=== PATIENT | female | born 1955 | race Caucasian/White ===

== ENCOUNTER 2017-03-23 10:32 | Inpatient (IN) ==
[2017-03-23] MEDS ORDERED: SODIUM CHLORIDE 0.9% 500 ML IV STA (10:55)
[2017-03-23] MEDS ORDERED: METOCLOPRAMIDE 10 MG/2 ML VIAL IV STA (10:55)
[2017-03-23] MEDS ORDERED: PANTOPRAZOLE 40 MG VIAL IV STA (10:55)
[2017-03-23] MEDS ORDERED: ONDANSETRON 4 MG/2 ML VIAL IV STA (10:55)
[2017-03-23 11:06] LABS: Basophils # 0.1 10*3/uL (0.0-0.2); Basophils % 0.6 % (0.0-0.8); Eosinophils # 0.2 10*3/uL (0.0-0.87); Eosinophils % 1.1 % (0.00-10.9); Hematocrit 37.6 VOL% (35.7-47.0); Hemoglobin 12.7 GM/DL (12.0-16.0); Immature Granulocytes % 4.7 %; Immature Granulocytes Absolute 0.73 #; Lymphocytes # 0.8 10*3/uL (1.4-4.0); Lymphocytes % 5.4 % (21.3-54.2); Mean Corpuscular HGB Conc 33.8 GM/DL (32-36); Mean Corpuscular Hemoglobin 27 PG (27-34); Mean Corpuscular Volume 79.8 FL (87-102); Mean Platelet Volume 11.5 FL (9.6-12.0); Monocytes # 0.7 10*3/uL (0.11-0.8); Monocytes % 4.7 % (1.7-12.7); Neutrophils # 13.1 10*3/uL (1.4-7.4); Neutrophils % 83.5 % (38.7-73.9); Platelet Count 324 T/CUMM (130-400); Red Blood Count 4.71 MC/CUMM (3.8-5.5); Red Cell Distribution Width 14.4 % (9.3-17.3); White Blood Count 15.7 T/CUMM (4-12)
[2017-03-23] MEDS ORDERED: ONDANSETRON 4 MG/2 ML VIAL ONE (11:10)
[2017-03-23] MEDS ORDERED: METOCLOPRAMIDE 10 MG/2 ML VIAL ONE (11:10)
[2017-03-23] MEDS ORDERED: PANTOPRAZOLE 40 MG VIAL IV ONE (11:10)
[2017-03-23 11:41] LABS: Band Neutrophils 5 % (0-10); Eosinophils 1 % (0-10); Giant Platelets Few; Hypochromasia 1+; Lymphocytes 8 % (20-55); Ovalocytes Slight; Platelet Estimate Adequate; Segmented Neutrophils 81 % (50-85); Total Cells Counted 100
[2017-03-23 11:54] LABS: Apearance,Urine CLOUDY (Clear); Bacteria,Urine Moderate /HPF (Few); Bilirubin,Urine Negative (Negative); Blood, Urine Moderate mg/dL (Negative); Glucose,Urine (UA) Negative (Negative); Ketones,Urine Negative (Negative); Nitrite,Urine Negative (Negative); Protein,Urine 30 MG/DL; RBC,Urine 33 /HPF (0-4); Urine Color Yellow (Yellow); Urine Urobilinogen < 2.0 EU/DL (0.2-1.0); WBC,Urine 303 /HPF (0-6)
[2017-03-23] MEDS ORDERED: LEVOFLOXACIN INJ 750 MG in PREMIX 1 EACH IV STA (12:05)
[2017-03-23 12:12] LABS: Albumin 1.9 G/DL (3.4-5.0); Bilirubin,Total 0.6 MG/DL (0.2-1.0); Calcium 7.9 MG/DL (8.5-10.1); Osmolality,Calculated 289.8 MOS/KG (273-304); Potassium 3.3 MMOL/L (3.5-5.1); Total Protein 6.1 G/DL (6.4-8.3)
[2017-03-23] MEDS ORDERED: MORPHINE 10 MG/1 ML VIAL IV PRN ×2 (12:45→14:44)
[2017-03-23] MEDS ORDERED: diphenhydrAMINE CAP 25 MG CAPSULE PO PRN (12:45)
[2017-03-23] MEDS ORDERED: PROMETHAZINE 25 MG/1 ML VIAL IM PRN (12:45)
[2017-03-23] MEDS ORDERED: DOCUSATE SODIUM 100 MG CAPSULE PO PRN (12:45)
[2017-03-23] MEDS ORDERED: ONDANSETRON 4 MG/2 ML VIAL IV PRN (12:45)
[2017-03-23] MEDS ORDERED: ACETAMINOPHEN 325 MG TABLET PO PRN (12:45)
[2017-03-23] MEDS ORDERED: GLUCAGON 1 MG VIAL IM PRN ×2 (12:53→15:57)
[2017-03-23] MEDS ORDERED: DEXTROSE 50% 25 GM/50 ML VIAL IV PRN ×2 (12:53→15:57)
[2017-03-23] MEDS ORDERED: SODIUM CHLORIDE 0.9% 1,000 ML IV SCH (13:00)
[2017-03-23] MEDS ORDERED: LEVOFLOXACIN INJ 150 ML IV ONE (13:51)
[2017-03-23] MEDS ORDERED: POTASSIUM CHLORIDE 20 MEQ TABLET PO ONE (15:40)
[2017-03-23] MEDS ORDERED: ENOXAPARIN 40 MG/0.4 ML SYRINGE SUBCUT SCH ×3 (15:57→21:00)
[2017-03-23] MEDS ORDERED: HYDROCORTISONE 1% CREAM 28 GM TUBE TOP PRN (15:57)
[2017-03-23] MEDS ORDERED: MAGNESIUM HYDROXIDE SUSP 30 ML UDCUP PO PRN (15:57)
[2017-03-23] MEDS: PANTOPRAZOLE 40 MG TABLET PO SCH (16:14)
[2017-03-23] MEDS: SODIUM BICARB INJ 50 MEQ in SODIUM CHLORIDE 0.45% 1,000 ML IV SCH (17:59)
[2017-03-23] MEDS: cefTRIAXone 1,000 MG in SYRINGE 1 EACH IV SCH (18:00)
[2017-03-23] MEDS: INSULIN LISPRO 100 UNIT/ML SUBCUT SCH (18:09)
[2017-03-23] MEDS: FLUTICASONE/SALMETEROL 250-50 DISKUS 14 DOSE INH SCH (20:29)
[2017-03-23] MEDS: METHENAMINE HIPPURATE 1 GM TABLET PO SCH (20:32)
[2017-03-23] MEDS: DOCUSATE SODIUM 100 MG CAPSULE PO SCH (20:33)
[2017-03-23] MEDS: FLUTICASONE 50 MCG NASAL SPRAY 16 GM BOTTLE BOTH NARES SCH (20:36)
[2017-03-23] MEDS ORDERED: rOPINIRole 0.25 MG TABLET PO SCH (21:00)
[2017-03-24 06:08] LABS: Basophils # 0.1 10*3/uL (0.0-0.2); Basophils % 0.4 % (0.0-0.8); Eosinophils # 0.2 10*3/uL (0.0-0.87); Eosinophils % 1.7 % (0.00-10.9); Hemoglobin 11.2 GM/DL (12.0-16.0); Immature Granulocytes % 5.1 %; Immature Granulocytes Absolute 0.63 #; Lymphocytes # 1.2 10*3/uL (1.4-4.0); Lymphocytes % 9.7 % (21.3-54.2); Mean Corpuscular Hemoglobin 28 PG (27-34); Mean Corpuscular Volume 78.6 FL (87-102); Mean Platelet Volume 11.5 FL (9.6-12.0); Monocytes # 0.8 10*3/uL (0.11-0.8); Monocytes % 6.4 % (1.7-12.7); Neutrophils # 9.5 10*3/uL (1.4-7.4); Neutrophils % 76.7 % (38.7-73.9); Platelet Count 329 T/CUMM (130-400); Red Blood Count 4.07 MC/CUMM (3.8-5.5); Red Cell Distribution Width 14.6 % (9.3-17.3); White Blood Count 12.4 T/CUMM (4-12)
[2017-03-24] MEDS: LEVOTHYROXINE 175 MCG TABLET PO SCH (06:10)
[2017-03-24 06:38] LABS: Calcium 7.9 MG/DL (8.5-10.1); Osmolality,Calculated 288.5 MOS/KG (273-304); Potassium 3.3 MMOL/L (3.5-5.1); Risk Ratio 10.25; VLDL CHOLESTEROL 40.8 MG/DL
[2017-03-24 08:05] LABS: Band Neutrophils 2 % (0-10); Giant Platelets Few; Hypochromasia 1+; Lymphocytes 8 % (20-55); Ovalocytes Slight; Platelet Estimate Adequate; Segmented Neutrophils 78 % (50-85); Total Cells Counted 100
[2017-03-24] MEDS ORDERED: LISINOPRIL 10 MG TABLET PO SCH (09:00)
[2017-03-24] MEDS ORDERED: CALCIUM (CITRATE)/VITAMIN D 200 MG-125 UNIT TABLET PO SCH (09:00)
[2017-03-24] MEDS ORDERED: amLODIPine 10 MG TABLET PO SCH (09:00)
[2017-03-24] MEDS ORDERED: NON-FORMULARY MEDICATION (Fluticasone/Vilanterol [Breo Ellipta 100-25 Mcg Inh] 1 PUFF) INH SCH (09:00)
[2017-03-24] MEDS: METHENAMINE HIPPURATE 1 GM TABLET PO SCH ×2 (09:58→20:33)
[2017-03-24] MEDS: SERTRALINE 50 MG TABLET PO SCH (09:58)
[2017-03-24] MEDS: PANTOPRAZOLE 40 MG TABLET PO SCH (09:59)
[2017-03-24] MEDS: ALLOPURINOL 100 MG TABLET PO SCH (09:59)
[2017-03-24] MEDS: FLUTICASONE 50 MCG NASAL SPRAY 16 GM BOTTLE BOTH NARES SCH (10:00)
[2017-03-24] MEDS: CHOLECALCIFEROL 1,000 UNIT TABLET PO SCH (10:00)
[2017-03-24] MEDS: sitaGLIPtin 100 MG TABLET PO SCH (10:01)
[2017-03-24] MEDS ORDERED: POTASSIUM CHLORIDE 20 MEQ/15 ML UDCUP PO ONE (10:21)
[2017-03-24] MEDS: INSULIN LISPRO 100 UNIT/ML SUBCUT SCH ×3 (12:23→17:11)
[2017-03-24] MEDS: DOCUSATE SODIUM 100 MG CAPSULE PO SCH ×2 (12:52→20:32)
[2017-03-24] MEDS: SODIUM BICARB INJ 50 MEQ in SODIUM CHLORIDE 0.45% 1,000 ML IV SCH (15:51)
[2017-03-24] MEDS ORDERED: POTASSIUM CHLORIDE 20 MEQ TABLET PO ONE (16:25)
[2017-03-24] MEDS: FLUTICASONE/SALMETEROL 250-50 DISKUS 14 DOSE INH SCH (17:01)
[2017-03-24] MEDS: ENOXAPARIN 30 MG/0.3 ML SYRINGE SUBCUT SCH (20:33)
[2017-03-24] MEDS: cefTRIAXone 1,000 MG in SYRINGE 1 EACH IV SCH (20:35)
[2017-03-25] MEDS: LEVOTHYROXINE 175 MCG TABLET PO SCH (06:38)
[2017-03-25] MEDS: sitaGLIPtin 100 MG TABLET PO SCH (09:47)
[2017-03-25] MEDS: SERTRALINE 50 MG TABLET PO SCH (09:47)
[2017-03-25] MEDS: METHENAMINE HIPPURATE 1 GM TABLET PO SCH ×2 (09:47→20:29)
[2017-03-25] MEDS: CHOLECALCIFEROL 1,000 UNIT TABLET PO SCH (09:47)
[2017-03-25] MEDS: ALLOPURINOL 100 MG TABLET PO SCH (09:47)
[2017-03-25] MEDS: DOCUSATE SODIUM 100 MG CAPSULE PO SCH ×2 (09:47→20:29)
[2017-03-25] MEDS: PANTOPRAZOLE 40 MG TABLET PO SCH (09:48)
[2017-03-25] MEDS: INSULIN LISPRO 100 UNIT/ML SUBCUT SCH ×2 (09:48→17:36)
[2017-03-25] MEDS: SODIUM BICARB INJ 50 MEQ in SODIUM CHLORIDE 0.45% 1,000 ML IV SCH (09:51)
[2017-03-25] MEDS: cefTRIAXone 1,000 MG in SYRINGE 1 EACH IV SCH (17:36)
[2017-03-25] MEDS: ENOXAPARIN 30 MG/0.3 ML SYRINGE SUBCUT SCH (20:29)
[2017-03-26] MEDS: LEVOTHYROXINE 175 MCG TABLET PO SCH (06:31)
[2017-03-26] MEDS ORDERED: PANTOPRAZOLE 40 MG TABLET PO SCH (07:00)
[2017-03-26 07:27] LABS: Calcium 8.2 MG/DL (8.5-10.1); Osmolality,Calculated 289.4 MOS/KG (273-304)
[2017-03-26] MEDS: INSULIN LISPRO 100 UNIT/ML SUBCUT SCH (09:27)
[2017-03-26] MEDS: SERTRALINE 50 MG TABLET PO SCH (09:32)
[2017-03-26] MEDS: CHOLECALCIFEROL 1,000 UNIT TABLET PO SCH (09:32)
[2017-03-26] MEDS: ALLOPURINOL 100 MG TABLET PO SCH (09:33)
[2017-03-26] MEDS: METHENAMINE HIPPURATE 1 GM TABLET PO SCH (09:33)
[2017-03-26] MEDS: sitaGLIPtin 100 MG TABLET PO SCH (09:33)
[2017-03-26] MEDS: DOCUSATE SODIUM 100 MG CAPSULE PO SCH (09:33)
[2017-03-26 11:57] VITALS: BP 107/76
[2017-03-26] MEDS ORDERED: CIPROFLOXACIN 500 MG TABLET PO SCH (21:00)
== END 2017-03-26 13:55 | disposition home or self-care (01) | DRG 683 ==
LOC: N.ED 10:32 → SUATTDRO 12:45 → N.EDINP 12:45 → N.5E 15:46
PROVIDERS: ADMIT Pediatrics; ATTEND Hospitalist

== ENCOUNTER 2020-08-12 00:41 | Inpatient (IN) ==
[2020-08-12] MEDS ORDERED: KETOROLAC 60 MG/2 ML VIAL IM STA (02:12)
[2020-08-12] MEDS ORDERED: KETOROLAC 30 MG/1 ML VIAL IV STA (02:15)
[2020-08-12] MEDS ORDERED: HYDROmorphone 2 MG/1 ML VIAL IV STA (02:49)
[2020-08-12] MEDS ORDERED: ONDANSETRON 4 MG/2 ML VIAL IV STA (02:49)
[2020-08-12 03:43] LABS: PT Patient Result 11.3 SECS (10.5-12.0)
[2020-08-12 03:45] LABS: Bacteria,Urine Many /HPF (Few); Bilirubin,Urine Negative (Negative); Blood, Urine Negative (Negative); Glucose,Urine (UA) Negative (Negative); Hyaline Casts,Urine 11 /LPF (0-3); Ketones,Urine Negative (Negative); Mucus,Urine Occasional /LPF (Occasional); Nitrite,Urine Negative (Negative); Protein,Urine 30 MG/DL; Urine Appearance CLOUDY (Clear); Urine Color Yellow (Yellow); Urine Specific Gravity 1.016 (1.001-1.035); Urine Urobilinogen < 2.0 EU/DL (0.2-1.0)
[2020-08-12 03:57] LABS: Albumin 3.2 G/DL (3.4-5.0); Bilirubin,Total 0.5 MG/DL (0.2-1.0); Osmolality,Calculated 284.1 MOS/KG (273-304); Potassium 4.4 MMOL/L (3.5-5.1); Total Protein 7.6 G/DL (6.4-8.2)
[2020-08-12] MEDS ORDERED: cefTRIAXone 1,000 MG in SODIUM CHLORIDE 0.9% 100 ML IV STA (05:21)
[2020-08-12] MEDS ORDERED: ONDANSETRON 4 MG/2 ML VIAL IV PRN (05:31)
[2020-08-12] MEDS ORDERED: MORPHINE 4 MG/1 ML VIAL IV PRN (05:31)
[2020-08-12] MEDS ORDERED: GLUCAGON 1 MG VIAL IM PRN (05:31)
[2020-08-12] MEDS ORDERED: DEXTROSE 50% 25 GM/50 ML VIAL IV PRN (05:31)
[2020-08-12] MEDS ORDERED: ALBUTEROL/IPRATROPIUM 3 ML NEB RESP TX PRN (05:40)
[2020-08-12 05:46] LABS: Basophils % 0.2 % (0.0-0.8); Eosinophils % 0.2 % (0.00-10.9); Hematocrit 35.2 VOL% (35.7-47.0); Hemoglobin 11.1 GM/DL (12.0-16.0); Immature Granulocytes % 0.5 %; Immature Granulocytes Absolute 0.06 #; Lymphocytes # 0.9 10*3/uL (1.4-4.0); Lymphocytes % 7.4 % (21.3-54.2); Mean Corpuscular HGB Conc 31.5 GM/DL (32-36); Mean Corpuscular Volume 83.2 FL (87-102); Neutrophils % 86.7 % (38.7-73.9); Platelet Count 224 T/CUMM (130-400); Red Blood Count 4.23 MC/CUMM (3.8-5.5); Red Cell Distribution Width 14.6 % (9.3-17.3); White Blood Count 12.1 T/CUMM (4-12)
[2020-08-12] MEDS ORDERED: MIDAZOLAM 2 MG/2 ML VIAL ONE (06:26)
[2020-08-12] MEDS ORDERED: fentaNYL 100 MCG/2 ML VIAL ONE ×2 (06:26→07:46)
[2020-08-12] MEDS ORDERED: DEXMEDETOMIDINE 200 MCG/2 ML VIAL ONE (06:38)
[2020-08-12] MEDS ORDERED: ceFAZolin 2,000 MG/50 ML DUPLEX IV ONE (07:12)
[2020-08-12] MEDS: INSULIN REGULAR 100 UNIT/ML SUBCUT SCH ×4 (07:32→21:07)
[2020-08-12] MEDS ORDERED: DEXAMETHASONE 4 MG/1 ML VIAL ONE (08:28)
[2020-08-12] MEDS ORDERED: ROCURONIUM 50 MG/5 ML VIAL IV ONE (08:28)
[2020-08-12] MEDS ORDERED: SUCCINYLCHOLINE 200 MG/10 ML VIAL ONE (08:28)
[2020-08-12] MEDS ORDERED: LIDOCAINE 2% 5 ML VIAL ONE (08:28)
[2020-08-12] MEDS ORDERED: ETOMIDATE 40 MG/20 ML VIAL IV ONE (08:28)
[2020-08-12] MEDS ORDERED: SEVOFLURANE 1 UNIT/15 MINUTE INH ONE (08:28)
[2020-08-12] MEDS ORDERED: PHENYLEPHRINE 1 MG/10 ML SYRINGE IV ONE (08:28)
[2020-08-12] MEDS ORDERED: propofoL 200 MG/20 ML VIAL IV ONE (08:28)
[2020-08-12] MEDS ORDERED: ONDANSETRON 4 MG/2 ML VIAL ONE (08:28)
[2020-08-12] MEDS ORDERED: ceFAZolin 1,000 MG VIAL ONE (08:31)
[2020-08-12] MEDS ORDERED: ACETAMINOPHEN INJ 1,000 MG/100 ML VIAL IV ONE (08:31)
[2020-08-12] MEDS ORDERED: SUGAMMADEX 200 MG/2 ML VIAL IV ONE (08:32)
[2020-08-12] MEDS ORDERED: diphenhydrAMINE CAP 25 MG CAPSULE PO PRN (08:54)
[2020-08-12] MEDS ORDERED: MAGNESIUM HYDROXIDE SUSP 30 ML UDCUP PO PRN (08:54)
[2020-08-12] MEDS ORDERED: LACTULOSE 20 GM/30 ML UDCUP PO PRN (08:54)
[2020-08-12] MEDS ORDERED: PROMETHAZINE 25 MG/1 ML VIAL IM PRN (08:54)
[2020-08-12] MEDS ORDERED: MELATONIN 3 MG TABLET PO PRN (08:57)
[2020-08-12] MEDS ORDERED: NF- (Turmeric Root Extract 500 mg Capsule) PO SCH (09:00)
[2020-08-12] MEDS ORDERED: SEMAGLUTIDE SUBCUT SCH (09:00)
[2020-08-12] MEDS ORDERED: INJECTOR SUBCUT SCH (09:00)
[2020-08-12] MEDS: MULTIVITAMIN (CENTRUM) TABLET PO SCH (10:26)
[2020-08-12] MEDS: [UNRECOGNIZED DRUG - OTHER] PO SCH (10:26)
[2020-08-12] MEDS: FERROUS SULFATE 325 MG TABLET PO SCH (10:27)
[2020-08-12] MEDS: LOSARTAN 25 MG TABLET PO SCH (10:27)
[2020-08-12] MEDS: FUROSEMIDE 40 MG TABLET PO SCH (10:28)
[2020-08-12] MEDS: INSULIN GLARGINE 100 UNIT/ML SUBCUT SCH ×2 (10:28→21:07)
[2020-08-12] MEDS: METHENAMINE HIPPURATE 1 GM TABLET PO SCH ×2 (10:28→20:39)
[2020-08-12] MEDS: POTASSIUM CHLORIDE 20 MEQ TABLET PO SCH (10:28)
[2020-08-12] MEDS: PANTOPRAZOLE 40 MG TABLET PO SCH (10:29)
[2020-08-12] MEDS: amLODIPine 10 MG TABLET PO SCH (10:29)
[2020-08-12] MEDS: CHOLECALCIFEROL 1,000 UNIT TABLET PO SCH ×3 (10:30→20:38)
[2020-08-12] MEDS: CYANOCOBALAMIN 500 MCG TABLET PO SCH (10:30)
[2020-08-12] MEDS: EZETIMIBE 10 MG TABLET PO SCH (10:30)
[2020-08-12] MEDS: CETIRIZINE 10 MG TABLET PO SCH (10:31)
[2020-08-12] MEDS: SERTRALINE 100 MG TABLET PO SCH (10:31)
[2020-08-12] MEDS: LACTATED RINGERS 1,000 ML IV SCH (16:59)
[2020-08-13] MEDS: cefTRIAXone 1,000 MG in SODIUM CHLORIDE 0.9% 100 ML IV SCH (06:00)
[2020-08-13] MEDS: FONDAPARINUX 2.5 MG/0.5 ML SYRINGE SUBCUT SCH (06:00)
[2020-08-13 06:17] LABS: Basophils % 0.4 % (0.0-0.8); Eosinophils # 0.2 10*3/uL (0.0-0.87); Eosinophils % 2.5 % (0.00-10.9); Hematocrit 29.8 VOL% (35.7-47.0); Hemoglobin 9.5 GM/DL (12.0-16.0); Immature Granulocytes % 0.5 %; Immature Granulocytes Absolute 0.04 #; Lymphocytes # 1.7 10*3/uL (1.4-4.0); Lymphocytes % 20.4 % (21.3-54.2); Mean Corpuscular HGB Conc 31.9 GM/DL (32-36); Mean Corpuscular Volume 83.5 FL (87-102); Mean Platelet Volume 11.7 FL (9.6-12.0); Monocytes % 8.4 % (1.7-12.7); Neutrophils % 67.8 % (38.7-73.9); Platelet Count 184 T/CUMM (130-400); Red Blood Count 3.57 MC/CUMM (3.8-5.5); Red Cell Distribution Width 14.6 % (9.3-17.3); White Blood Count 8.1 T/CUMM (4-12)
[2020-08-13] MEDS: LEVOTHYROXINE 137 MCG TABLET PO SCH (06:36)
[2020-08-13 06:47] LABS: Albumin 2.6 G/DL (3.4-5.0); Bilirubin,Total 0.5 MG/DL (0.2-1.0); Calcium 8.4 MG/DL (8.5-10.1); Osmolality,Calculated 280.8 MOS/KG (273-304); Potassium 4.3 MMOL/L (3.5-5.1); Total Protein 6.2 G/DL (6.4-8.2)
[2020-08-13] MEDS: CYANOCOBALAMIN 500 MCG TABLET PO SCH (09:17)
[2020-08-13] MEDS: CHOLECALCIFEROL 1,000 UNIT TABLET PO SCH ×3 (09:18→22:11)
[2020-08-13] MEDS: CETIRIZINE 10 MG TABLET PO SCH (09:18)
[2020-08-13] MEDS: METHENAMINE HIPPURATE 1 GM TABLET PO SCH ×2 (09:18→21:49)
[2020-08-13] MEDS: FERROUS SULFATE 325 MG TABLET PO SCH (09:18)
[2020-08-13] MEDS: SERTRALINE 100 MG TABLET PO SCH (09:18)
[2020-08-13] MEDS: EZETIMIBE 10 MG TABLET PO SCH (09:18)
[2020-08-13] MEDS: LOSARTAN 25 MG TABLET PO SCH (09:18)
[2020-08-13] MEDS: MULTIVITAMIN (CENTRUM) TABLET PO SCH (09:18)
[2020-08-13] MEDS: PANTOPRAZOLE 40 MG TABLET PO SCH (09:19)
[2020-08-13] MEDS: POTASSIUM CHLORIDE 20 MEQ TABLET PO SCH (09:19)
[2020-08-13] MEDS: FUROSEMIDE 40 MG TABLET PO SCH (09:19)
[2020-08-13] MEDS: amLODIPine 10 MG TABLET PO SCH (09:22)
[2020-08-13] MEDS: INSULIN REGULAR 100 UNIT/ML SUBCUT SCH ×4 (09:25→21:51)
[2020-08-13] MEDS: INSULIN GLARGINE 100 UNIT/ML SUBCUT SCH ×2 (09:28→21:52)
[2020-08-13] MEDS: LACTATED RINGERS 1,000 ML IV SCH (13:15)
[2020-08-13] MEDS: MORPHINE 4 MG/1 ML VIAL IV PRN ×2 (13:36→22:52)
[2020-08-13] MEDS ORDERED: ALUMINUM/MAGNES/SIMETH MAX STR 30 ML UDCUP PO PRN (15:52)
[2020-08-14] MEDS: cefTRIAXone 1,000 MG in SODIUM CHLORIDE 0.9% 100 ML IV SCH (05:17)
[2020-08-14] MEDS: FONDAPARINUX 2.5 MG/0.5 ML SYRINGE SUBCUT SCH (05:19)
[2020-08-14 06:29] LABS: Basophils % 0.5 % (0.0-0.8); Eosinophils # 0.4 10*3/uL (0.0-0.87); Eosinophils % 4.8 % (0.00-10.9); Hematocrit 27.5 VOL% (35.7-47.0); Hemoglobin 8.8 GM/DL (12.0-16.0); Immature Granulocytes Absolute 0.08 #; Lymphocytes # 1.7 10*3/uL (1.4-4.0); Lymphocytes % 20.9 % (21.3-54.2); Mean Corpuscular Volume 83.3 FL (87-102); Mean Platelet Volume 11.7 FL (9.6-12.0); Monocytes % 8.7 % (1.7-12.7); Neutrophils % 64.1 % (38.7-73.9); Platelet Count 168 T/CUMM (130-400); Red Cell Distribution Width 14.8 % (9.3-17.3); White Blood Count 8.3 T/CUMM (4-12)
[2020-08-14 06:41] LABS: Calcium 8.1 MG/DL (8.5-10.1); Osmolality,Calculated 283.4 MOS/KG (273-304)
[2020-08-14] MEDS: EZETIMIBE 10 MG TABLET PO SCH (09:17)
[2020-08-14] MEDS: PANTOPRAZOLE 40 MG TABLET PO SCH (09:17)
[2020-08-14] MEDS: LEVOTHYROXINE 137 MCG TABLET PO SCH (09:18)
[2020-08-14] MEDS: FERROUS SULFATE 325 MG TABLET PO SCH (09:18)
[2020-08-14] MEDS: CHOLECALCIFEROL 1,000 UNIT TABLET PO SCH (09:19)
[2020-08-14] MEDS: MULTIVITAMIN (CENTRUM) TABLET PO SCH (09:19)
[2020-08-14] MEDS: FUROSEMIDE 40 MG TABLET PO SCH (09:19)
[2020-08-14] MEDS: POTASSIUM CHLORIDE 20 MEQ TABLET PO SCH (09:19)
[2020-08-14] MEDS: SERTRALINE 100 MG TABLET PO SCH (09:19)
[2020-08-14] MEDS: METHENAMINE HIPPURATE 1 GM TABLET PO SCH ×2 (09:19→22:29)
[2020-08-14] MEDS: LOSARTAN 25 MG TABLET PO SCH (09:20)
[2020-08-14] MEDS: CYANOCOBALAMIN 500 MCG TABLET PO SCH (09:20)
[2020-08-14] MEDS: CETIRIZINE 10 MG TABLET PO SCH (09:20)
[2020-08-14] MEDS: INSULIN GLARGINE 100 UNIT/ML SUBCUT SCH ×2 (09:23→22:29)
[2020-08-14] MEDS: INSULIN REGULAR 100 UNIT/ML SUBCUT SCH ×4 (09:24→22:28)
[2020-08-14] MEDS: LACTATED RINGERS 1,000 ML IV SCH (09:24)
[2020-08-14] MEDS: [UNRECOGNIZED DRUG - OTHER] PO SCH (09:29)
[2020-08-14] MEDS: amLODIPine 10 MG TABLET PO SCH (10:30)
[2020-08-14] MEDS: MORPHINE 4 MG/1 ML VIAL IV PRN ×2 (15:02→19:21)
[2020-08-15] MEDS: cefTRIAXone 1,000 MG in SODIUM CHLORIDE 0.9% 100 ML IV SCH (05:03)
[2020-08-15] MEDS: FONDAPARINUX 2.5 MG/0.5 ML SYRINGE SUBCUT SCH (05:04)
[2020-08-15] MEDS ORDERED: PANTOPRAZOLE 40 MG TABLET PO SCH (06:30)
[2020-08-15] MEDS ORDERED: LEVOTHYROXINE 137 MCG TABLET PO SCH (06:30)
[2020-08-15 06:43] LABS: Basophils # 0.1 10*3/uL (0.0-0.2); Basophils % 0.8 % (0.0-0.8); Eosinophils # 0.5 10*3/uL (0.0-0.87); Eosinophils % 6.1 % (0.00-10.9); Hematocrit 28.4 VOL% (35.7-47.0); Hemoglobin 8.6 GM/DL (12.0-16.0); Immature Granulocytes % 0.7 %; Immature Granulocytes Absolute 0.06 #; Lymphocytes # 1.7 10*3/uL (1.4-4.0); Lymphocytes % 19.1 % (21.3-54.2); Mean Corpuscular HGB Conc 30.3 GM/DL (32-36); Mean Corpuscular Volume 86.3 FL (87-102); Mean Platelet Volume 11.4 FL (9.6-12.0); Monocytes % 7.5 % (1.7-12.7); Neutrophils % 65.8 % (38.7-73.9); Platelet Count 189 T/CUMM (130-400); Red Blood Count 3.29 MC/CUMM (3.8-5.5); Red Cell Distribution Width 14.6 % (9.3-17.3); White Blood Count 8.8 T/CUMM (4-12)
[2020-08-15] MEDS: LEVOTHYROXINE 137 MCG TABLET PO SCH (07:02)
[2020-08-15] MEDS: PANTOPRAZOLE 40 MG TABLET PO SCH ×2 (07:03→09:01)
[2020-08-15 07:09] LABS: Calcium 8.4 MG/DL (8.5-10.1); Osmolality,Calculated 277.7 MOS/KG (273-304); Potassium 4.2 MMOL/L (3.5-5.1)
[2020-08-15] MEDS: LACTATED RINGERS 1,000 ML IV SCH (07:59)
[2020-08-15] MEDS: INSULIN REGULAR 100 UNIT/ML SUBCUT SCH ×4 (07:59→20:39)
[2020-08-15] MEDS: METHENAMINE HIPPURATE 1 GM TABLET PO SCH ×2 (08:52→20:36)
[2020-08-15] MEDS: EZETIMIBE 10 MG TABLET PO SCH (08:53)
[2020-08-15] MEDS: FUROSEMIDE 40 MG TABLET PO SCH (08:53)
[2020-08-15] MEDS: SERTRALINE 100 MG TABLET PO SCH (08:53)
[2020-08-15] MEDS: MULTIVITAMIN (CENTRUM) TABLET PO SCH (08:53)
[2020-08-15] MEDS: POTASSIUM CHLORIDE 20 MEQ TABLET PO SCH (08:53)
[2020-08-15] MEDS: CHOLECALCIFEROL 1,000 UNIT TABLET PO SCH (08:53)
[2020-08-15] MEDS: amLODIPine 10 MG TABLET PO SCH (08:53)
[2020-08-15] MEDS: CYANOCOBALAMIN 500 MCG TABLET PO SCH (08:53)
[2020-08-15] MEDS: CETIRIZINE 10 MG TABLET PO SCH (08:53)
[2020-08-15] MEDS: FERROUS SULFATE 325 MG TABLET PO SCH (08:54)
[2020-08-15] MEDS: LOSARTAN 25 MG TABLET PO SCH (08:54)
[2020-08-15] MEDS: INSULIN GLARGINE 100 UNIT/ML SUBCUT SCH ×2 (08:55→20:35)
[2020-08-15] MEDS: [UNRECOGNIZED DRUG - OTHER] PO SCH (09:01)
[2020-08-15] MEDS: MORPHINE 4 MG/1 ML VIAL IV PRN ×2 (10:30→13:06)
[2020-08-16] MEDS: LEVOTHYROXINE 137 MCG TABLET PO SCH (06:27)
[2020-08-16] MEDS: FONDAPARINUX 2.5 MG/0.5 ML SYRINGE SUBCUT SCH (06:28)
[2020-08-16] MEDS: cefTRIAXone 1,000 MG in SODIUM CHLORIDE 0.9% 100 ML IV SCH (06:29)
[2020-08-16] MEDS: PANTOPRAZOLE 40 MG TABLET PO SCH ×2 (06:34→08:02)
[2020-08-16] MEDS: INSULIN REGULAR 100 UNIT/ML SUBCUT SCH ×4 (07:26→21:42)
[2020-08-16] MEDS: FERROUS SULFATE 325 MG TABLET PO SCH (08:00)
[2020-08-16] MEDS: amLODIPine 10 MG TABLET PO SCH (08:00)
[2020-08-16] MEDS: LOSARTAN 25 MG TABLET PO SCH (08:00)
[2020-08-16] MEDS: CETIRIZINE 10 MG TABLET PO SCH (08:00)
[2020-08-16] MEDS: INSULIN GLARGINE 100 UNIT/ML SUBCUT SCH ×2 (08:00→21:48)
[2020-08-16] MEDS: CYANOCOBALAMIN 500 MCG TABLET PO SCH (08:01)
[2020-08-16] MEDS: CHOLECALCIFEROL 1,000 UNIT TABLET PO SCH (08:01)
[2020-08-16] MEDS: MULTIVITAMIN (CENTRUM) TABLET PO SCH (08:01)
[2020-08-16] MEDS: METHENAMINE HIPPURATE 1 GM TABLET PO SCH ×2 (08:02→20:30)
[2020-08-16] MEDS: FUROSEMIDE 40 MG TABLET PO SCH (08:02)
[2020-08-16] MEDS: POTASSIUM CHLORIDE 20 MEQ TABLET PO SCH (08:02)
[2020-08-16] MEDS: SERTRALINE 100 MG TABLET PO SCH (08:02)
[2020-08-16] MEDS: EZETIMIBE 10 MG TABLET PO SCH (08:02)
[2020-08-16] MEDS: [UNRECOGNIZED DRUG - OTHER] PO SCH (08:40)
[2020-08-17] MEDS: PANTOPRAZOLE 40 MG TABLET PO SCH ×2 (05:47→08:48)
[2020-08-17] MEDS: LEVOTHYROXINE 137 MCG TABLET PO SCH (05:47)
[2020-08-17] MEDS: FONDAPARINUX 2.5 MG/0.5 ML SYRINGE SUBCUT SCH (05:50)
[2020-08-17] MEDS: INSULIN REGULAR 100 UNIT/ML SUBCUT SCH ×2 (08:00→12:04)
[2020-08-17] MEDS: INSULIN GLARGINE 100 UNIT/ML SUBCUT SCH (08:47)
[2020-08-17] MEDS: CHOLECALCIFEROL 1,000 UNIT TABLET PO SCH (08:48)
[2020-08-17] MEDS: CYANOCOBALAMIN 500 MCG TABLET PO SCH (08:48)
[2020-08-17] MEDS: FERROUS SULFATE 325 MG TABLET PO SCH (08:48)
[2020-08-17] MEDS: MULTIVITAMIN (CENTRUM) TABLET PO SCH (08:49)
[2020-08-17] MEDS: METHENAMINE HIPPURATE 1 GM TABLET PO SCH (08:49)
[2020-08-17] MEDS: CETIRIZINE 10 MG TABLET PO SCH (08:49)
[2020-08-17] MEDS: LOSARTAN 25 MG TABLET PO SCH (08:49)
[2020-08-17] MEDS: amLODIPine 10 MG TABLET PO SCH (08:49)
[2020-08-17] MEDS: FUROSEMIDE 40 MG TABLET PO SCH (08:49)
[2020-08-17] MEDS: SERTRALINE 100 MG TABLET PO SCH (08:49)
[2020-08-17] MEDS: EZETIMIBE 10 MG TABLET PO SCH (08:49)
[2020-08-17] MEDS: POTASSIUM CHLORIDE 20 MEQ TABLET PO SCH (08:55)
[2020-08-17] MEDS: [UNRECOGNIZED DRUG - OTHER] PO SCH (09:07)
[2020-08-17] MEDS: BISACODYL 10 MG SUPP RECTAL PRN ×2 (09:39→09:43)
[2020-08-17 12:41] VITALS: BP 105/57
== END 2020-08-17 14:09 | DRG 481 ==
LOC: EDBD → EDUNIT# → N.ED 00:41 → SUATTDRO 05:07 → N.EDINP 05:07 → N.3E 05:22
PROVIDERS: ADMIT Internal Medicine; ATTEND Internal Medicine